=== PATIENT | male | born 1945 | race American Indian/Alaskan Native ===

== ENCOUNTER 2017-03-28 15:55 | Emergency (ER) | payer MEDICARE ==
[2017-03-28 20:22] VITALS: BP 170/68
--- NOTE | 2017-03-28 20:47 | Emergency Department Report ---
ED General Adult HPI - General Chief complaint: Extremity Injury, Lower Stated complaint: LEFT FOOT SWOLLEN Time Seen by Provider: 03/28/17 20:39 Source: patient, RN notes reviewed Mode of arrival: Wheelchair Limitations: No Limitations - History of Present Illness Initial comments: This is a 71-year-old male. He is previously unknown to me. His primary care doctor is Dr. Dylan Jordan. He reports a past medical history of hypertension and diabetes. Possible gout. The patient presents to the ER with left lower extremity swelling. It was initially painful, and this resolved. There is no chest pain. There is no shortness of breath. There is no hemoptysis or hematemesis. There is no bright red blood per rectum. No recent trips greater than 4 hours. No recent hospitalizations. The patient reports that the swelling has been constant, decreases when he sits down, increases when he stands up. -: Gradual, days(s) Location: left, lower extremity Consistency: intermittent Improves with: other (per hpi) Worsens with: other (per hpi) Associated Symptoms: denies: confusion, chest pain, cough, diaphoresis, headaches, loss of appetite, malaise, nausea/vomiting, shortness of breath, syncope, weakness - Related Data Home Medications Medication Instructions Recorded Confirmed Last Taken Aspirin [Adult Low Dose Aspirin EC] 81 mg PO DAILY 03/28/17 03/28/17 03/28/17 amLODIPine [Norvasc] 10 mg PO DAILY 03/28/17 03/28/17 03/28/17 metFORMIN [Glucophage] 500 mg PO BID 03/28/17 03/28/17 03/27/17 Previous Rx's Medication Instructions Recorded Last Taken Type Furosemide [Lasix] 20 mg PO QDAY #7 tablet 03/28/17 Unknown Rx Allergies Allergy/AdvReac Type Severity Reaction Status Date / Time No Known Allergies Allergy Unverified 03/28/17 16:26 ED Review of Systems ROS: Stated complaint: LEFT FOOT SWOLLEN Other details as noted in HPI Constitutional: denies: fever Eyes: denies: eye discharge ENT: denies: epistaxis Respiratory: denies: cough Cardiovascular: edema. denies: chest pain Gastrointestinal: denies: abdominal pain Genitourinary: as per HPI. denies: dysuria Musculoskeletal: joint swelling, arthralgia Skin: denies: lesions Neurological: denies: weakness ED Past Medical Hx - Past Medical History Hx Hypertension: Yes Hx Diabetes: Yes - Surgical History Hx Pacemaker: Yes - Social History Smoking Status: Never Smoker Substance Use Type: Alcohol - Medications Home Medications: Home Medications Medication Instructions Recorded Confirmed Last Taken Type Aspirin [Adult Low Dose Aspirin EC] 81 mg PO DAILY 03/28/17 03/28/17 03/28/17 History Furosemide [Lasix] 20 mg PO QDAY #7 tablet 03/28/17 Unknown Rx amLODIPine [Norvasc] 10 mg PO DAILY 03/28/17 03/28/17 03/28/17 History metFORMIN [Glucophage] 500 mg PO BID 03/28/17 03/28/17 03/27/17 History ED Physical Exam - General Limitations: No Limitations General appearance: alert, in no apparent distress - Head Head exam: Present: atraumatic, normocephalic - Eye Eye exam: Present: normal appearance, EOMI. Absent: nystagmus - ENT ENT exam: Present: normal exam, normal orophraynx, mucous membranes moist, normal external ear exam - Neck Neck exam: Present: normal inspection, full ROM. Absent: tenderness, meningismus - Respiratory Respiratory exam: Present: normal lung sounds bilaterally. Absent: respiratory distress, wheezes, rales, rhonchi, stridor, chest wall tenderness - Cardiovascular Cardiovascular Exam: Present: regular rate, normal rhythm, normal heart sounds. Absent: bradycardia, tachycardia, irregular rhythm, systolic murmur, diastolic murmur, rubs, gallop - GI/Abdominal GI/Abdominal exam: Present: soft, normal bowel sounds. Absent: distended, tenderness, guarding, rebound, rigid, pulsatile mass - Rectal Rectal exam: Present: deferred - Extremities Exam Extremities exam: Present: normal inspection, full ROM, normal capillary refill , pedal edema, other (there are 2+ pulses noted in the bilateral lower and upper extremities. There is no palpable cord. There is no crepitus. There is no redness. The compartments are soft. Foot is nontender. Ankles are nontender. The toes are nontender). Absent: calf tenderness - Back Exam Back exam: Present: normal inspection, full ROM. Absent: tenderness, CVA tenderness (R), CVA tenderness (L), muscle spasm, paraspinal tenderness, vertebral tenderness - Neurological Exam Neurological exam: Present: alert, oriented X3, other (Extraocular movements intact. Tongue midline. No facial droop. Facial sensation intact to light touch in the V1, V2, V3 distribution bilaterally. 5 and 5 strength in 4 extremities.. Sensation is intact to light touch in 4 extremities.). Absent: motor sensory deficit - Psychiatric Psychiatric exam: Present: normal affect, normal mood - Skin Skin exam: Present: warm, dry, intact, normal color. Absent: rash ED Course Vital Signs 03/28/17 03/28/17 16:27 20:21 Temperature 98.4 F Pulse Rate 107 H 76 Respiratory 18 16 Rate Blood Pressure 183/93 Blood Pressure 170/68 [Left] O2 Sat by Pulse 96 100 Oximetry - Reevaluation(s) Reevaluation #1: 03/28/17 22:09 x-ray of the foot demonstrates no fracture or dislocation. Soft tissue swelling is noted. X-ray the chest suggest possible mild pulmonary vascular congestion. The patient does not have crackles or rales, and he is not hypoxic. There may be a component of dependent edema. Patient will be started empirically on Lasix, and he is instructed to follow up with his outpatient primary care doctor. ED Medical Decision Making - Lab Data Result diagrams: 03/28/17 21:15 Vital Signs 03/28/17 03/28/17 16:27 20:21 Temperature 98.4 F Pulse Rate 107 H 76 Respiratory 18 16 Rate Blood Pressure 183/93 Blood Pressure 170/68 [Left] O2 Sat by Pulse 96 100 Oximetry - Radiology Data Radiology results: report reviewed, image reviewed interpreted by me: X-ray of the foot demonstrates no fracture or dislocation. DJD is noted. X-ray the chest demonstrates left-sided pacer device, mild pulmonary vascular congestion. No acute CHF or other findings LIVE [facility] JUANA URIOSTEGUI Male : 1945 [facility]# [id number] 03/28/17 18:41 - Radiology Dept. [facility]: [id number] : 1945 Patient Age: 71 VASCULAR LAB PRELIMINARY REPORT LLE VENOUS DOPPLER COMPLETED NO EVIDENCE OF DVT/SVT NOTED IN VESSELS/SEGMENTS VISUALIZED Initialized on 03/28/17 18:41 - END OF NOTE - Medical Decision Making Differential diagnosis: Venous insufficiency, DVT, renal insufficiency, hepatic insufficiency DJD, arthritis Assessment and plan: 71-year-old male with what is now painless swelling of the left lower extremity. The left lower extremity DVT study is negative. He has no chest pain or shortness of breath. He has no pulmonary embolus or DVT risk factors. He is low risk by well's criteria. Patient most likely having venous insufficiency. X-ray of the chest ordered to assess for possible CHF, but clinically not hypoxic without rales or rhonchi, therefore doubt CHF. We will check basic laboratory studies to exclude renal and liver insufficiency., Critical care attestation.: If time is entered above; I have spent that time in minutes in the direct care of this critically ill patient, excluding procedure time. ED Disposition Clinical Impression: Lower extremity edema Disposition: TO HOME OR SELFCARE Is pt being admited?: No Does the pt Need Aspirin: No Condition: Stable Instructions: Leg Edema (ED) Additional Instructions: Take the medication as directed. Follow up with a primary care doctor within the next week. Purchase [id number] compression stockings as. Weightbearing as tolerated. Take Tylenol every 4 hours, or ibuprofen every 6 hours as needed for pain. Return to the ER right away with new pain, worsened pain, migration of pain, fevers, chills, chest pain, shortness of breath, confusion, inability to tolerate liquid feeds. I recommend that your primary care doctor repeat your left lower extremity ultrasound within the next 7-10 days. Prescriptions: Furosemide [Lasix] 20 mg PO QDAY #7 tablet Referrals: YANNI BAUMANN MD [Primary Care Provider] - 3-5 Days
[2017-03-28 21:46] LABS: Alanine Aminotransferase 18 units/L (7-56); Albumin 4.2 g/dL (3.9-5); Albumin/Globulin Ratio 1.1 %; Alkaline Phosphatase 60 units/L (35-129); Anion Gap 21 mmol/L; Bilirubin,Direct 0.3 mg/dL (0-0.2); Blood Urea Nitrogen 18 mg/dL (9-20); Calcium 9.2 mg/dL (8.4-10.2); Carbon Dioxide 28 mmol/L (22-30); Chloride 92.7 mmol/L (98-107); Glucose 174 mg/dL (75-100); Potassium 3.7 mmol/L (3.6-5.0); Sodium 138 mmol/L (137-145); Total Protein 8.1 g/dL (6.3-8.2)
--- NOTE | 2017-03-29 07:49 | XRay Report ---
Portable chest: SOB. The heart is slightly enlarged. A bipolar pacemaker is present. Minimal redistribution of flow to the upper lobes is noted. The lungs are clear. No prior study for comparison. Impression: Findings suggesting minimal cardiac decompensation. Left foot: Swelling There is moderate swelling of the soft tissues predominantly over the dorsum of the foot. Mild degenerative spurring is noted along the dorsal surfaces of the anterior tail as and tarsal bones. There is calcification at the attachment of the Achilles tendon and a small plantar spur. The bones are well-mineralized. The joints are preserved. No fractures and no displacement is noted. Impression: Nonspecific swelling and degenerative spurring.
--- NOTE | 2017-03-29 11:17 | Vascular Lab Report ---
Left Lower Extremity Venous Duplex Study: Reason for Exam: Swelling of the left lower extremity. Comments on the Right: A limited duplex study was done of the proximal veins of the right lower extremity. All veins visualized are freely compressible without evidence of internal echogenicity. Flow is spontaneous and phasic throughout. No evidence of acute or chronic thrombus is seen in any of the vessels visualized. Comments on the Left: All veins visualized are freely compressible without evidence of internal echogenicity. Flow is spontaneous and phasic throughout. No evidence of acute or chronic thrombus is seen in any of the vessels visualized. Impression: No evidence of acute or chronic deep venous thrombosis in the left lower extremity.
== END 2017-03-28 22:29 | disposition home or self-care (01) ==
LOC: ED 15:55
DX: R60.0 Localized edema (principal); I10 Essential (primary) hypertension; E11.9 Type 2 diabetes mellitus without complications; Z95.0 Presence of cardiac pacemaker; Z79.82 Long term (current) use of aspirin
CPT/HCPCS: 36415; 71010; 80048; 80074

== ENCOUNTER 2019-08-21 13:33 | Inpatient (IN) | payer MEDICARE ==
[2019-08-21 17:04] LABS: Basophils % (Auto) 0.3 % (0.0-1.8); Hematocrit 29.7 % (35.5-45.6); Hemoglobin 9.4 gm/dl (11.8-15.2); Lymphocytes # (Auto) 0.3 K/mm3 (1.2-5.4); Lymphocytes % (Auto) 4.2 % (13.4-35.0); Mean Corpuscular HGB Conc 32 % (32-34); Mean Corpuscular Volume 99 fl (84-94); Monocytes # (Auto) 0.5 K/mm3 (0.0-0.8); Monocytes % (Auto) 7.8 % (0.0-7.3)
[2019-08-21 17:14] LABS: Albumin 3.1 g/dL (3.9-5); Calcium 7.6 mg/dL (8.4-10.2)
[2019-08-21 17:16] LABS: Red Cell Distribution Width 22.8 % (13.2-15.2)
[2019-08-21 18:08] LABS: Creatine Kinase MB 10.2 ng/mL (0.0-4.0)
[2019-08-21] MEDS ORDERED: ASPIRIN 325 MG TAB PO ONE (18:09)
--- NOTE | 2019-08-21 18:11 | Emergency Department Report ---
- General Chief complaint: Weakness Stated complaint: WEANKESS Time Seen by Provider: 08/21/19 14:58 Source: EMS Mode of arrival: Stretcher Limitations: Physical Limitation - History of Present Illness Initial comments: 74-year-old male with past medical history stage IV colon cancer, diabetes, hypertension, pacemaker placement, and colostomy presents to the hospital complains of generalized weakness. His daughter called 911 because she was weak and not eat breakfast. He fell off the couch earlier and she had to call EMS to lift him up off the floor. Patient is oriented to self only. States year is 1919 or 2012. Cannot identify where he is or why he is here. He denies any pain currently. MD Complaint: numbness Severity scale (0 -10): 0 - Related Data Home Medications Medication Instructions Recorded Confirmed Last Taken Aspirin [Adult Low Dose Aspirin EC] 81 mg PO DAILY 03/28/17 03/28/17 03/28/17 amLODIPine [Norvasc] 10 mg PO DAILY 03/28/17 03/28/17 03/28/17 metFORMIN [Glucophage] 500 mg PO BID 03/28/17 03/28/17 03/27/17 Previous Rx's Medication Instructions Recorded Last Taken Type Furosemide [Lasix] 20 mg PO QDAY #7 tablet 03/28/17 Unknown Rx Allergies Allergy/AdvReac Type Severity Reaction Status Date / Time No Known Allergies Allergy Unverified 03/28/17 16:26 ED Review of Systems ROS: Stated complaint: WEANKESS Other details as noted in HPI Comment: All other systems reviewed and negative ED Past Medical Hx - Past Medical History Previous Medical History?: Yes Hx Hypertension: Yes Hx Diabetes: Yes Additional medical history: Stage 4 colon cancer per EMS report. - Surgical History Past Surgical History?: Yes Hx Pacemaker: Yes Additional Surgical History: colostomy - Social History Smoking Status: Former Smoker Substance Use Type: None - Medications Home Medications: Home Medications Medication Instructions Recorded Confirmed Last Taken Type Aspirin [Adult Low Dose Aspirin EC] 81 mg PO DAILY 03/28/17 03/28/17 03/28/17 History Furosemide [Lasix] 20 mg PO QDAY #7 tablet 03/28/17 Unknown Rx amLODIPine [Norvasc] 10 mg PO DAILY 03/28/17 03/28/17 03/28/17 History metFORMIN [Glucophage] 500 mg PO BID 0703/28/17 03/27/17 History ED Physical Exam - General Limitations: Physical Limitation - Other Other exam information: General: No acute distress Head: Atraumatic Eyes: normal appearance ENT: His membranes Neck: Normal appearance, no midline tenderness Chest: Clear to auscultation bilaterally CV: Regular rate and rhythm Abdomen: Soft, normal bowel sounds, nontender, nondistended, no rebound or guarding. Colostomy bag. Midline lower vertical surgical scar Back: Normal inspection Extremity: Normal inspection infection, full range of motion Neuro: Alert O x 1, no facial asymmetry, speech clear, 5/5 upper extremity strength. 4/5 bilateral lower extremity strength equal bilaterally. Sensation grossly intact. Psych: Appropriate behavior Skin: No rash ED Course Vital Signs 08/21/19 08/21/19 08/21/19 15:20 17:20 19:14 Temperature 97.8 F Pulse Rate 70 70 70 Respiratory 14 13 20 Rate Blood Pressure 156/93 Blood Pressure 143/85 149/97 [Left] O2 Sat by Pulse 99 97 98 Oximetry ED Medical Decision Making - Lab Data Result diagrams: 08/21/19 16:39 08/21/19 16:39 Lab Results 08/21/19 08/21/19 08/21/19 Range/Units 16:35 16:39 16:39 WBC 7.0 (4.5-11.0) K/mm3 RBC 3.00 L (3.65-5.03) M/mm3 Hgb 9.4 L (11.8-15.2) gm/dl Hct 29.7 L (35.5-45.6) % MCV 99 H (84-94) fl MCH 31 (28-32) pg MCHC 32 (32-34) % RDW 22.8 H (13.2-15.2) % Plt Count 79 L (140-440) K/mm3 Lymph % (Auto) 4.2 L (13.4-35.0) % [place] % (Auto) 7.8 H (0.0-7.3) % Eos % (Auto) 0.0 (0.0-4.3) % Baso % (Auto) 0.3 (0.0-1.8) % Lymph # 0.3 L (1.2-5.4) K/mm3 [place] # 0.5 (0.0-0.8) K/mm3 Eos # 0.0 (0.0-0.4) K/mm3 Baso # 0.0 (0.0-0.1) K/mm3 Seg Neutrophils % 87.7 H (40.0-70.0) % Seg Neutrophils # 6.1 (1.8-7.7) K/mm3 Sodium 152 H (137-145) mmol/L Potassium 3.3 L (3.6-5.0) mmol/L Chloride 112.9 H (98-107) mmol/L Carbon Dioxide 17 L (22-30) mmol/L Anion Gap 25 mmol/L BUN 64 H (9-20) mg/dL Creatinine 3.0 H (0.8-1.5) mg/dL Estimated GFR 25 ml/min BUN/Creatinine Ratio 21 % Glucose 110 H (75-100) mg/dL POC Glucose 99 (70-105) Calcium 7.6 L (8.4-10.2) mg/dL Magnesium (1.7-2.3) mg/dL Total Bilirubin 6.00 H (0.1-1.2) mg/dL AST 235 H (5-40) units/L ALT 388 H (7-56) units/L Alkaline Phosphatase 366 H (35-129) units/L Total Creatine Kinase (55-170) units/L CK-MB (CK-2) (0.0-4.0) ng/mL CK-MB (CK-2) Rel Index (0-4) Troponin T (0.00-0.029) ng/mL Total Protein 6.6 (6.3-8.2) g/dL Albumin 3.1 L (3.9-5) g/dL Albumin/Globulin Ratio 0.9 % Triglycerides (2-149) mg/dL Cholesterol (50-199) mg/dL LDL Cholesterol Direct (50-130) mg/dL HDL Cholesterol (40-59) mg/dL Cholesterol/HDL Ratio % TSH (0.270-4.200) mlU/mL Free T4 (0.76-1.46) ng/dL 08/21/19 08/21/19 08/21/19 Range/Units 16:44 16:44 16:44 WBC (4.5-11.0) K/mm3 RBC (3.65-5.03) M/mm3 Hgb (11.8-15.2) gm/dl Hct (35.5-45.6) % MCV (84-94) fl MCH (28-32) pg MCHC (32-34) % RDW (13.2-15.2) % Plt Count (140-440) K/mm3 Lymph % (Auto) (13.4-35.0) % [place] % (Auto) (0.0-7.3) % Eos % (Auto) (0.0-4.3) % Baso % (Auto) (0.0-1.8) % Lymph # (1.2-5.4) K/mm3 [place] # (0.0-0.8) K/mm3 Eos # (0.0-0.4) K/mm3 Baso # (0.0-0.1) K/mm3 Seg Neutrophils % (40.0-70.0) % Seg Neutrophils # (1.8-7.7) K/mm3 Sodium (137-145) mmol/L Potassium (3.6-5.0) mmol/L Chloride (98-107) mmol/L Carbon Dioxide (22-30) mmol/L Anion Gap mmol/L BUN (9-20) mg/dL Creatinine (0.8-1.5) mg/dL Estimated GFR ml/min BUN/Creatinine Ratio % Glucose (75-100) mg/dL POC Glucose (70-105) Calcium (8.4-10.2) mg/dL Magnesium 1.80 (1.7-2.3) mg/dL Total Bilirubin (0.1-1.2) mg/dL AST (5-40) units/L ALT (7-56) units/L Alkaline Phosphatase (35-129) units/L Total Creatine Kinase 1636 H (55-170) units/L CK-MB (CK-2) 10.2 H (0.0-4.0) ng/mL CK-MB (CK-2) Rel Index 0.6 (0-4) Troponin T 0.188 H* (0.00-0.029) ng/mL Total Protein (6.3-8.2) g/dL Albumin (3.9-5) g/dL Albumin/Globulin Ratio % Triglycerides 184 H (2-149) mg/dL Cholesterol 123 (50-199) mg/dL LDL Cholesterol Direct 52 (50-130) mg/dL HDL Cholesterol 21 L (40-59) mg/dL Cholesterol/HDL Ratio 5.85 % TSH 3.190 (0.270-4.200) mlU/mL Free T4 0.93 (0.76-1.46) ng/dL - EKG Data -: EKG Interpreted by Me (v paced rate 70) - Medical Decision Making pt with colon cancer poor po intake no pain labs show renal insuf (last cr on record normal 2016 no more recent value for comparison) 1/2 NS ordered asa provided for elevated trop but could be due renal insuf, repeat pending plan to admit to hospitalist service ammonia added to blood work since labs suggest end stage liver disease. (elevated lfts and thrombocytopenia) - Differential Diagnosis anemia, mi, dehydration, cancer Critical Care Time: No Critical care attestation.: If time is entered above; I have spent that time in minutes in the direct care of this critically ill patient, excluding procedure time. ED Disposition Clinical Impression: Generalized weakness, Dehydration, Renal insufficiency, Hypokalemia, Elevated LFTs, Colon cancer, Elevated troponin, Thrombocytopenia, Elevated CK Disposition: OP ADMIT IP TO THIS HOSP Is pt being admited?: Yes Condition: Stable Time of Disposition: 18:34 (Dr Castanon/hosp)
[2019-08-21 18:15] LABS: Free T4 (Free Thyroxine) 0.93 ng/dL (0.76-1.46)
[2019-08-21 18:23] LABS: Chol/HDL Ratio 5.85 %
[2019-08-21 18:28] LABS: Platelet Count 79 K/mm3 (140-440)
--- NOTE | 2019-08-21 18:36 | History and Physical Report ---
History of Present Illness Chief complaint: He is weak and cant do anything for himself History of present illness: 74 YO Male with DM, HTN, Cardiomyopathy S/P Pacemaker Placement, Encephalopathy, Stage 4 Colon Cancer with metastatic disease to Liver, Brain, and Bone, Debility presents to ED for evaluation. Pt is nonverbal and unable to provide history. Pt history provided by his . As per , the patient has experienced confusion, Weakness, and decreased oral intake over the past 1 month with progressively worsening symptoms over the same time frame. Pt has experienced multiple falls over the past 2 weeks which required notification of EMS to lift patient off the floor. Pt has not eaten over the past 1-2 days. Pt is currently bedbound, nonambulatory, and unable to sit up independently in bed. Pt requires 6/6 assistance with activities of daily living. Pt is also confused, and refused oral intake. Pt is unable to make his needs known. EMS notified, and upon arrival the patient was found to be in distress. Pt transported to [facility]. Pt seen and evaluated in ED and found to have AKD, Acidosis, Rhabdomyolysis, and Debility. Pt admitted to medical floor and treated with supportive care and IVF resuscitation therapy. Advanced care planning conducted in ED. Pt acknowledges understanding and agreement with care plan. Past History Past Surgical History: bowel surgery, Other (Pacemaker Placement.) Social history: , lives with family. denies: smoking, alcohol abuse, prescription drug abuse Family history: hypertension Medications and Allergies Allergies Allergy/AdvReac Type Severity Reaction Status Date / Time No Known Allergies Allergy Unverified 03/28/17 16:26 Home Medications Medication Instructions Recorded Confirmed Last Taken Type Aspirin [Adult Low Dose Aspirin EC] 81 mg PO DAILY 03/28/17 03/28/17 03/28/17 History Furosemide [Lasix] 20 mg PO QDAY #7 tablet 03/28/17 Unknown Rx amLODIPine [Norvasc] 10 mg PO DAILY 03/28/17 03/28/17 03/28/17 History metFORMIN [Glucophage] 500 mg PO BID 03/28/17 03/28/17 03/27/17 History Active Meds: Active Medications Sodium Chloride (Nacl 0.45% 1000 Ml) 1,000 mls @ 200 mls/hr IV DIRECT FREDA Review of Systems ROS unobtainable: due to mental status Exam - Constitutional Vitals: Temp Pulse Resp BP Pulse Ox 97.8 F 70 13 143/85 97 08/21/19 15:20 08/21/19 17:20 08/21/19 17:20 08/21/19 17:20 08/21/19 17:20 General appearance: Present: mild distress - EENT Eyes: Present: miosis ENT: hearing decreased - Neck Neck: Present: supple, normal ROM - Respiratory Respiratory: bilateral: diminished - Cardiovascular Heart Sounds: Present: S1 & S2. Absent: rub, click - Extremities Extremities: pulses symmetrical, No edema Extremity abnormal: edema Peripheral Pulses: within normal limits - Abdominal General gastrointestinal: Present: soft, non-tender, non-distended, normal bowel sounds Male genitourinary: Present: normal - Integumentary Integumentary: Present: clear, dry, clammy, decreased turgor - Musculoskeletal Musculoskeletal: generalized weakness - Psychiatric Psychiatric: no appropriate mood/affect, no intact judgment & insight, no memory intact, no cooperative, agitated - Neurologic Neurologic: CNII-XII intact, moves all extremities, no gait normal Results - Labs CBC & Chem 7: 08/21/19 16:39 08/21/19 16:39 Labs: Abnormal lab results 08/21/19 08/21/19 08/21/19 Range/Units 16:39 16:39 16:44 RBC 3.00 L (3.65-5.03) M/mm3 Hgb 9.4 L (11.8-15.2) gm/dl Hct 29.7 L (35.5-45.6) % MCV 99 H (84-94) fl RDW 22.8 H (13.2-15.2) % Plt Count 79 L (140-440) K/mm3 Lymph % (Auto) 4.2 L (13.4-35.0) % [place] % (Auto) 7.8 H (0.0-7.3) % Lymph # 0.3 L (1.2-5.4) K/mm3 Seg Neutrophils % 87.7 H (40.0-70.0) % Sodium 152 H (137-145) mmol/L Potassium 3.3 L (3.6-5.0) mmol/L Chloride 112.9 H (98-107) mmol/L Carbon Dioxide 17 L (22-30) mmol/L BUN 64 H (9-20) mg/dL Creatinine 3.0 H (0.8-1.5) mg/dL Glucose 110 H (75-100) mg/dL Calcium 7.6 L (8.4-10.2) mg/dL Total Bilirubin 6.00 H (0.1-1.2) mg/dL AST 235 H (5-40) units/L ALT 388 H (7-56) units/L Alkaline Phosphatase 366 H (35-129) units/L Total Creatine Kinase (55-170) units/L CK-MB (CK-2) (0.0-4.0) ng/mL Troponin T 0.188 H* (0.00-0.029) ng/mL Albumin 3.1 L (3.9-5) g/dL Triglycerides 184 H (2-149) mg/dL HDL Cholesterol 21 L (40-59) mg/dL 08/21/19 Range/Units 16:44 RBC (3.65-5.03) M/mm3 Hgb (11.8-15.2) gm/dl Hct (35.5-45.6) % MCV (84-94) fl RDW (13.2-15.2) % Plt Count (140-440) K/mm3 Lymph % (Auto) (13.4-35.0) % [place] % (Auto) (0.0-7.3) % Lymph # (1.2-5.4) K/mm3 Seg Neutrophils % (40.0-70.0) % Sodium (137-145) mmol/L Potassium (3.6-5.0) mmol/L Chloride (98-107) mmol/L Carbon Dioxide (22-30) mmol/L BUN (9-20) mg/dL Creatinine (0.8-1.5) mg/dL Glucose (75-100) mg/dL Calcium (8.4-10.2) mg/dL Total Bilirubin (0.1-1.2) mg/dL AST (5-40) units/L ALT (7-56) units/L Alkaline Phosphatase (35-129) units/L Total Creatine Kinase 1636 H (55-170) units/L CK-MB (CK-2) 10.2 H (0.0-4.0) ng/mL Troponin T (0.00-0.029) ng/mL Albumin (3.9-5) g/dL Triglycerides (2-149) mg/dL HDL Cholesterol (40-59) mg/dL Assessment and Plan - Patient Problems (1) GERI (acute kidney injury) Current Visit: Yes Status: Acute Plan to address problem: IVF resuscitation therapy, urine electrolytes, renal ultrasound, monitor uop q shift, avoid nephrotoxic agents. (2) Acidosis Current Visit: Yes Status: Acute Plan to address problem: IVF resuscitation therapy, IV bicarbonate therapy, repeat bmp in am. (3) Rhabdomyolysis Current Visit: Yes Status: Acute Qualifiers: Encounter type: initial encounter Plan to address problem: IVF resuscitation therapy, Iv bicarbonate therapy, repeat bmp, monitor uop q shift, (4) Colon cancer Current Visit: Yes Status: Acute Qualifiers: Colon location: unspecified part of colon Qualified Code(s): C18.9 - Malignant neoplasm of colon, unspecified Plan to address problem: Supportive care, pain control, outpatient F/U (5) Metabolic encephalopathy Current Visit: Yes Status: Acute Plan to address problem: CT head, neuro check, thyroid panel, aspiration precautions, seizure precautions, fall precautions. (6) Advance care planning Current Visit: Yes Status: Acute Plan to address problem: Pt is full code. Pt prognosis discussed. Risks and benefits of current care plan discussed. Pt acknowledges understanding and agreement with care plan. +30min. (7) DVT prophylaxis Current Visit: Yes Status: Acute Plan to address problem: SCD to BLE while in bed, supportive care, prophylactic heparin
[2019-08-21] MEDS ORDERED: SODIUM CHLORIDE 0.45% 1000 ML 1,000 ML IV SCH ×2 (19:00→20:00)
[2019-08-21] MEDS ORDERED: ALBUTEROL 2.5 MG/3 ML NEBU IH PRN (19:02)
[2019-08-21] MEDS ORDERED: ONDANSETRON 4 MG/2 ML INJ IV PRN (19:02)
[2019-08-21] MEDS ORDERED: ACETAMINOPHEN 325 MG TAB PO PRN (19:02)
[2019-08-21] MEDS ORDERED: MORPHINE 2 MG/1 ML INJ IV PRN (19:02)
--- NOTE | 2019-08-21 23:24 | Cat Scan Report ---
Head CT without intravenous contrast INDICATION: Altered mental status FINDINGS: Moderate atrophic changes are seen with enlarged ventricles and prominent sulci. Periventricular whit e matter low-attenuation is likely due to microangiopathic ischemic change. No hemorrhage or extra-ax ial fluid collection. No edema or mass effect. No focal infarct is seen. Portions of the sinuses visu alized are clear. No skull fracture seen. No acute abnormality. IMPRESSION: Negative head CT. All CT scans at this location are performed using CT dose reduction for ALARA by means of automated e xposure control Signer Name: Francisco Dahl MD Signed: 08/21/2019 11:19 PM Workstation Name: [id number]
[2019-08-21] MEDS: HEPARIN 5,000 UNIT/1 ML VIAL SUB-Q SCH (23:30)
[2019-08-22] MEDS: ALPRAZolam 0.25 MG TAB PO PRN (03:40)
[2019-08-22 07:33] LABS: Hematocrit 30.7 % (35.5-45.6); Hemoglobin 9.5 gm/dl (11.8-15.2); Mean Corpuscular HGB Conc 31 % (32-34); Mean Corpuscular Volume 102 fl (84-94)
[2019-08-22 07:34] LABS: Platelet Count 68 K/mm3 (140-440); Red Cell Distribution Width 22.6 % (13.2-15.2)
[2019-08-22 07:47] LABS: Albumin 3.1 g/dL (3.9-5); Calcium 7.4 mg/dL (8.4-10.2)
[2019-08-22] MEDS ORDERED: FUROSEMIDE 20 MG TAB PO SCH (10:00)
[2019-08-22] MEDS: ASPIRIN EC 81 MG TAB PO SCH (10:05)
[2019-08-22] MEDS: amLODIPine 10 MG TAB PO SCH (10:06)
[2019-08-22] MEDS: HEPARIN 5,000 UNIT/1 ML VIAL SUB-Q SCH ×2 (10:06→22:32)
[2019-08-22] MEDS: D5W/0.45% NACL 1,000 ML IV SCH ×2 (10:07→22:59)
[2019-08-22 10:28] LABS: Basophils % (Manual) 0 % (0.0-1.8); Eosinophils % (Manual) 0 % (0.0-4.3); Total Cells Counted 100
[2019-08-22 10:30] LABS: Schistocytes Rare; Spherocytes Few; Tear Drop Cells 1+
[2019-08-22 10:31] LABS: Platelet Estimate Consistent w Auto
--- NOTE | 2019-08-22 11:12 | Progress Note ---
Assessment and Plan / GERI (acute kidney injury) due to vasomotor nephropathy on possible CKD cont IVF resuscitation therapy, monitor uop q shift, avoid nephrotoxic agents. /Metabolic Acidosis - due to renal failure and dehydration cont IVF resuscitation therapy, repeat bmp in am. / Rhabdomyolysis cont IVF resuscitation therapy, monitor uop q shift, monitor CPK / Colon cancer stage 4 - s/p colostomy Supportive care, pain control, outpatient F/U family wants hospice, CM consulted / Metabolic encephalopathy CT w/o any new findings, cont to provide supportive care /Moderate PCM - nutrition supplements /Hypernatremia - due to dehydration - cont iv fluid /Anemia of CD - cont to monitor CBC /Thrombocytopenia, likely from underlying malignancy, cont to monitor / Advance care planning Pt is now DNR. Pt prognosis discussed. Risks and benefits of current care plan discussed. Pt acknowledges understanding and agreement with care plan. requested hospice / DVT prophylaxis SCD to BLE while in bed, supportive care, no prophylactic heparin for low platelet Subjective Date of service: 08/22/19 Interval history: Patient seen and examined Discussed with - wants to place for DNR and home hospice Patient has no new symptom today, monitoring electrolytes Objective - Constitutional Vitals: Vital Signs - 12hr 08/22/19 08/22/19 08/22/19 01:09 02:20 02:23 Temperature 97.2 F L Pulse Rate 73 Respiratory 20 Rate Blood Pressure 149/92 O2 Sat by Pulse 100 95 Oximetry 08/22/19 08/22/19 07:21 10:06 Temperature Pulse Rate 77 77 Respiratory 18 Rate Blood Pressure 150/96 150/96 O2 Sat by Pulse 93 Oximetry General appearance: Present: mild distress, other (ill-looking) - EENT Eyes: PERRL, EOM intact ENT: hearing intact, clear oral mucosa Ears: bilateral: normal - Neck Neck: supple, normal ROM - Respiratory Respiratory effort: normal Respiratory: bilateral: CTA - Cardiovascular Rhythm: regular Heart Sounds: Present: S1 & S2. Absent: gallop, rub Extremities: pulses intact, No edema, normal color, Full ROM - Gastrointestinal General gastrointestinal: Present: soft, non-tender, non-distended, normal bowel sounds - Integumentary Integumentary: clear, warm, dry - Musculoskeletal Musculoskeletal: 1, strength equal bilaterally - Neurologic Neurologic: moves all extremities - Psychiatric Psychiatric: cooperative, other (does not speak) - Labs CBC & Chem 7: 08/22/19 06:44 08/23/19 03:54 Labs: Abnormal lab results 08/21/19 08/21/19 08/21/19 Range/Units 16:39 16:39 16:44 RBC 3.00 L (3.65-5.03) M/mm3 Hgb 9.4 L (11.8-15.2) gm/dl Hct 29.7 L (35.5-45.6) % MCV 99 H (84-94) fl MCHC (32-34) % RDW 22.8 H (13.2-15.2) % Plt Count 79 L (140-440) K/mm3 Lymph % (Auto) 4.2 L (13.4-35.0) % Laurens % (Auto) 7.8 H (0.0-7.3) % Lymph # 0.3 L (1.2-5.4) K/mm3 Seg Neutrophils % 87.7 H (40.0-70.0) % Seg Neuts % (Manual) (40.0-70.0) % Lymphocytes % (Manual) (13.4-35.0) % Nucleated RBC % (0.0-0.9) % Lymphocytes # (Manual) (1.2-5.4) K/mm3 Sodium 152 H (137-145) mmol/L Potassium 3.3 L (3.6-5.0) mmol/L Chloride 112.9 H (98-107) mmol/L Carbon Dioxide 17 L (22-30) mmol/L BUN 64 H (9-20) mg/dL Creatinine 3.0 H (0.8-1.5) mg/dL Glucose 110 H (75-100) mg/dL POC Glucose (70-105) Calcium 7.6 L (8.4-10.2) mg/dL Total Bilirubin 6.00 H (0.1-1.2) mg/dL AST 235 H (5-40) units/L ALT 388 H (7-56) units/L Alkaline Phosphatase 366 H (35-129) units/L Total Creatine Kinase (55-170) units/L CK-MB (CK-2) (0.0-4.0) ng/mL Troponin T 0.188 H* (0.00-0.029) ng/mL Albumin 3.1 L (3.9-5) g/dL Triglycerides 184 H (2-149) mg/dL HDL Cholesterol 21 L (40-59) mg/dL 08/21/19 08/21/19 08/21/19 Range/Units 16:44 19:37 22:50 RBC (3.65-5.03) M/mm3 Hgb (11.8-15.2) gm/dl Hct (35.5-45.6) % MCV (84-94) fl MCHC (32-34) % RDW (13.2-15.2) % Plt Count (140-440) K/mm3 Lymph % (Auto) (13.4-35.0) % Laurens % (Auto) (0.0-7.3) % Lymph # (1.2-5.4) K/mm3 Seg Neutrophils % (40.0-70.0) % Seg Neuts % (Manual) (40.0-70.0) % Lymphocytes % (Manual) (13.4-35.0) % Nucleated RBC % (0.0-0.9) % Lymphocytes # (Manual) (1.2-5.4) K/mm3 Sodium (137-145) mmol/L Potassium (3.6-5.0) mmol/L Chloride (98-107) mmol/L Carbon Dioxide (22-30) mmol/L BUN (9-20) mg/dL Creatinine (0.8-1.5) mg/dL Glucose (75-100) mg/dL POC Glucose (70-105) Calcium (8.4-10.2) mg/dL Total Bilirubin (0.1-1.2) mg/dL AST (5-40) units/L ALT (7-56) units/L Alkaline Phosphatase (35-129) units/L Total Creatine Kinase 1636 H (55-170) units/L CK-MB (CK-2) 10.2 H (0.0-4.0) ng/mL Troponin T 0.204 H* 0.180 H* (0.00-0.029) ng/mL Albumin (3.9-5) g/dL Triglycerides (2-149) mg/dL HDL Cholesterol (40-59) mg/dL 08/22/19 08/22/19 08/22/19 Range/Units 06:44 06:44 07:28 RBC 3.00 L (3.65-5.03) M/mm3 Hgb 9.5 L (11.8-15.2) gm/dl Hct 30.7 L (35.5-45.6) % MCV 102 H (84-94) fl MCHC 31 L (32-34) % RDW 22.6 H (13.2-15.2) % Plt Count 68 L (140-440) K/mm3 Lymph % (Auto) (13.4-35.0) % Laurens % (Auto) (0.0-7.3) % Lymph # (1.2-5.4) K/mm3 Seg Neutrophils % (40.0-70.0) % Seg Neuts % (Manual) 90.0 H (40.0-70.0) % Lymphocytes % (Manual) 0 L (13.4-35.0) % Nucleated RBC % 2.0 H (0.0-0.9) % Lymphocytes # (Manual) 0.0 L (1.2-5.4) K/mm3 Sodium 152 H (137-145) mmol/L Potassium (3.6-5.0) mmol/L Chloride 110.1 H (98-107) mmol/L Carbon Dioxide 15 L (22-30) mmol/L BUN 72 H (9-20) mg/dL Creatinine 2.7 H (0.8-1.5) mg/dL Glucose 124 H (75-100) mg/dL POC Glucose 139 H (70-105) Calcium 7.4 L (8.4-10.2) mg/dL Total Bilirubin 6.20 H (0.1-1.2) mg/dL AST 238 H (5-40) units/L ALT 357 H (7-56) units/L Alkaline Phosphatase 339 H (35-129) units/L Total Creatine Kinase (55-170) units/L CK-MB (CK-2) (0.0-4.0) ng/mL Troponin T (0.00-0.029) ng/mL Albumin 3.1 L (3.9-5) g/dL Triglycerides (2-149) mg/dL HDL Cholesterol (40-59) mg/dL
[2019-08-22 17:06] LABS: Bacteria,Urine 2+ /HPF (Negative); Bilirubin,Urine NEG (Negative); Blood,Urine LG (Negative); Color,Urine Amber (Yellow); Mucus,Urine 1+ /HPF
[2019-08-23 04:53] LABS: Albumin 2.9 g/dL (3.9-5); Calcium 6.7 mg/dL (8.4-10.2)
[2019-08-23] MEDS ORDERED: POTASSIUM CHLORIDE ER 20 MEQ TAB PO ONE (10:04)
[2019-08-23] MEDS ORDERED: NACL IV SCH (10:04)
[2019-08-23] MEDS ORDERED: D5W IV SCH (10:04)
[2019-08-23] MEDS ORDERED: POTASSIUM CHLORIDE IV SCH (10:04)
[2019-08-23] MEDS: INSULIN LISPRO 100 UNIT/ML SUB-Q SCH ×4 (10:15→21:47)
[2019-08-23] MEDS: amLODIPine 10 MG TAB PO SCH (10:16)
[2019-08-23] MEDS: ASPIRIN EC 81 MG TAB PO SCH (10:16)
[2019-08-23] MEDS: ALPRAZolam 0.25 MG TAB PO PRN (10:17)
[2019-08-23] MEDS: HEPARIN 5,000 UNIT/1 ML VIAL SUB-Q SCH (10:17)
--- NOTE | 2019-08-23 13:05 | Progress Note ---
Assessment and Plan / GERI (acute kidney injury) due to vasomotor nephropathy on possible CKD cont IVF resuscitation therapy, monitor uop q shift, avoid nephrotoxic agents. Renal function remained stable /hypokalemia, replete as needed, monitor BMP /Metabolic Acidosis - due to renal failure and severe dehydration cont IVF resuscitation therapy, repeat bmp in am. / Rhabdomyolysis cont IVF resuscitation therapy, monitor uop q shift, monitor CPK / Colon cancer stage 4 - s/p colostomy Supportive care, pain control, outpatient F/U family wants hospice, CM consulted / Metabolic encephalopathy CT w/o any new findings, cont to provide supportive care /Moderate PCM - nutrition supplements /Hypernatremia - due to dehydration - cont iv fluid /Anemia of CD - cont to monitor CBC /Elevated LFT - due to hepatic metastasis, cont to monitor /Thrombocytopenia, likely from underlying malignancy, cont to monitor / Advance care planning Pt is now DNR. Pt prognosis discussed. Risks and benefits of current care plan discussed. Pt acknowledges understanding and agreement with care plan. requested hospice / DVT prophylaxis SCD to BLE while in bed, supportive care, no prophylactic heparin for low platelet Disposition: pending home hospice set up Subjective Date of service: 08/23/19 Interval history: Patient seen and examined Patient has no new symptom today, monitoring electrolytes Discharge pending on hospice set up Objective - Exam Narrative Exam: General appearance: Present: mild distress, other (ill-looking) - EENT Eyes: PERRL, EOM intact ENT: hearing intact, clear oral mucosa Ears: bilateral: normal - Neck Neck: supple, normal ROM - Respiratory Respiratory effort: normal Respiratory: bilateral: CTA - Cardiovascular Rhythm: regular Heart Sounds: Present: S1 & S2. Absent: gallop, rub Extremities: pulses intact, No edema, normal color, Full ROM - Gastrointestinal General gastrointestinal: Present: soft, non-tender, non-distended, normal bowel sounds - colostomy bag in place - Integumentary Integumentary: clear, warm, dry - Musculoskeletal Musculoskeletal: 1, strength equal bilaterally - Neurologic Neurologic: moves all extremities - Psychiatric Psychiatric: cooperative, other (does not speak) - Constitutional Vitals: Vital Signs - 12hr 08/23/19 08/23/19 08/23/19 02:04 07:21 12:51 Temperature 97.2 F L Pulse Rate 70 73 Respiratory 18 19 Rate Blood Pressure 146/88 146/84 O2 Sat by Pulse 95 95 95 Oximetry - Labs CBC & Chem 7: 08/24/19 04:01 08/24/19 04:01 Labs: Abnormal lab results 08/22/19 08/22/19 08/22/19 Range/Units 16:40 16:57 21:03 Sodium (137-145) mmol/L Potassium (3.6-5.0) mmol/L Chloride (98-107) mmol/L Carbon Dioxide (22-30) mmol/L BUN (9-20) mg/dL Creatinine (0.8-1.5) mg/dL Glucose (75-100) mg/dL POC Glucose 206 H 276 H (70-105) Calcium (8.4-10.2) mg/dL Total Bilirubin (0.1-1.2) mg/dL Direct Bilirubin (0-0.2) mg/dL AST (5-40) units/L ALT (7-56) units/L Alkaline Phosphatase (35-129) units/L Total Protein (6.3-8.2) g/dL Albumin (3.9-5) g/dL Urine WBC (Auto) 38.0 H (0.0-6.0) /HPF 08/23/19 08/23/19 08/23/19 Range/Units 03:54 07:30 11:47 Sodium 150 H (137-145) mmol/L Potassium 3.0 L D (3.6-5.0) mmol/L Chloride 112.6 H (98-107) mmol/L Carbon Dioxide 20 L (22-30) mmol/L BUN 68 H (9-20) mg/dL Creatinine 2.7 H (0.8-1.5) mg/dL Glucose 186 H (75-100) mg/dL POC Glucose 231 H 212 H (70-105) Calcium 6.7 L (8.4-10.2) mg/dL Total Bilirubin 5.10 H (0.1-1.2) mg/dL Direct Bilirubin 3.0 H (0-0.2) mg/dL AST 166 H (5-40) units/L ALT 291 H (7-56) units/L Alkaline Phosphatase 304 H (35-129) units/L Total Protein 5.7 L (6.3-8.2) g/dL Albumin 2.9 L (3.9-5) g/dL Urine WBC (Auto) (0.0-6.0) /HPF
[2019-08-23] MEDS: D5W/0.45% NACL/KCL 30 MEQ 30 MEQ/1,000 ML BAG IV SCH (14:26)
[2019-08-24] MEDS: D5W/0.45% NACL/KCL 30 MEQ 30 MEQ/1,000 ML BAG IV SCH (04:35)
[2019-08-24 04:57] LABS: Hematocrit 29.3 % (35.5-45.6); Hemoglobin 9.2 gm/dl (11.8-15.2); Mean Corpuscular HGB Conc 31 % (32-34); Mean Corpuscular Volume 100 fl (84-94); Red Blood Count 2.91 M/mm3 (3.65-5.03); Red Cell Distribution Width 23.2 % (13.2-15.2)
[2019-08-24 04:58] LABS: Platelet Count 71 K/mm3 (140-440)
[2019-08-24 05:06] LABS: Calcium 6.6 mg/dL (8.4-10.2)
[2019-08-24 05:47] LABS: Basophils % (Manual) 0 % (0.0-1.8); Eosinophils % (Manual) 0 % (0.0-4.3); Total Cells Counted 100
[2019-08-24 05:48] LABS: Anisocytosis 2+; Macrocytosis 1+; Poikilocytosis 1+; Target Cells 1+
[2019-08-24 05:49] LABS: Platelet Estimate Consistent w Auto
[2019-08-24] MEDS: INSULIN LISPRO 100 UNIT/ML SUB-Q SCH ×3 (07:36→18:35)
[2019-08-24] MEDS: amLODIPine 10 MG TAB PO SCH (09:32)
--- NOTE | 2019-08-24 13:06 | Discharge Summary ---
Providers - Providers Date of Admission: 08/21/19 19:02 Date of discharge: 08/24/19 Attending physician: TORSTEN YORK 08/22/19 05:16 Occupational Therapy Evaluate and Treat [CONS] Routine Comment: Reason For Exam: per geriatric assessment 08/22/19 05:45 Consult to Wound/ET Nurse [CONS] Routine Reason For Exam: wound eval 08/22/19 05:47 Physical Therapy Evaluation and Treat [CONS] Routine Comment: Reason For Exam: generalized weakness 08/22/19 16:20 Consult to Case Management [CONS] Routine Services Needed at Discharge: Other Additional Physician Instructions: home hospice 08/22/19 19:20 Speech Therapy Evaluation and Treat [CONS] Routine Reason For Exam: swallow eval Primary care physician: BRETT SUTTON Hospitalization Condition: Stable Pertinent studies: Head CT Hospital course: Discharge diagnosis: /Elevated troponin - likely NSTEMI type 2, pt w/o active chest pain in the setti ng of GERI, waiting for hospice setup. / GERI (acute kidney injury) due to vasomotor nephropathy on possible CKD cont IVF resuscitation therapy, monitor uop q shift, avoid nephrotoxic agents. Renal function remained stable /hypokalemia, replete as needed, monitor BMP /Metabolic Acidosis - due to renal failure and severe dehydration cont IVF resuscitation therapy, repeat bmp in am. / Rhabdomyolysis cont IVF resuscitation therapy, monitor uop q shift, monitor CPK / Colon cancer stage 4 - s/p colostomy Supportive care, pain control, outpatient F/U family wants hospice, CM consulted / Metabolic encephalopathy CT w/o any new findings, cont to provide supportive care /Moderate PCM - nutrition supplements /Hypernatremia - due to dehydration - cont iv fluid /Anemia of CD - cont to monitor CBC /Elevated LFT - due to hepatic metastasis, cont to monitor /Thrombocytopenia, likely from underlying malignancy, cont to monitor / Advance care planning Pt is now DNR. Pt prognosis discussed. Risks and benefits of current care plan discussed. Pt acknowledges understanding and agreement with care plan. requested hospice / DVT prophylaxis SCD to BLE while in bed, supportive care, no prophylactic heparin for low platelet Disposition: home hospice Physical exam: General appearance: Present: mild distress, other (ill-looking) - EENT Eyes: PERRL, EOM intact ENT: hearing intact, clear oral mucosa Ears: bilateral: normal - Neck Neck: supple, normal ROM - Respiratory Respiratory effort: normal Respiratory: bilateral: CTA - Cardiovascular Rhythm: regular Heart Sounds: Present: S1 & S2. Absent: gallop, rub Extremities: pulses intact, No edema, normal color, Full ROM - Gastrointestinal General gastrointestinal: Present: soft, non-tender, non-distended, normal bowel sounds - colostomy bag in place - Integumentary Integumentary: clear, warm, dry - Musculoskeletal Musculoskeletal: 1, strength equal bilaterally - Neurologic Neurologic: moves all extremities - Psychiatric Psychiatric: cooperative, other (does not speak) Disposition: DC-50 TO HOSPICE (HOME) Time spent for discharge: 34 minutes Core Measure Documentation - Palliative Care Palliative Care/ Comfort Measures: Not Applicable - Core Measures Any of the following diagnoses?: none Exam - Constitutional Vitals: Temp Pulse Resp BP Pulse Ox 97.8 F 70 18 126/74 94 08/24/19 07:19 08/24/19 10:00 08/24/19 10:00 08/24/19 09:32 08/24/19 07:40 Plan Activity: other (bedrest) Diet: advance as tolerated Wound: change dressing Follow up with: BRETT SUTTON MD [Primary Care Provider] - 3-5 Days Prescriptions: oxyCODONE /ACETAMINOPHEN [Percocet 5/325] 1 tab PO Q6HR PRN #10 tablet PRN Reason: Pain ALPRAZolam [Xanax TAB] 0.25 mg PO Q8H PRN #10 tablet PRN Reason: Anxiety
[2019-08-24] MEDS ORDERED: CALCIUM GLUCONATE 2,000 MG in SODIUM CHLORIDE 0.9% 100 ML IV ONE (13:30)
[2019-08-24 13:35] VITALS: BP 120/77
--- NOTE | 2019-08-25 07:24 | Vascular Lab Report ---
DUPLEX DOPPLER LOWER EXTREMITY ARTERIAL, BILATERAL INDICATION: LE pain. TECHNIQUE: Arterial duplex examination of both lower extremities performed using B-mode, color flow and spectral Doppler assessment. FINDINGS: RIGHT: Common Femoral Artery: PSV 59 cm/sec. Triphasic waveform. Proximal SFA: PSV 54 cm/sec. Triphasic waveform. Mid SFA: PSV 83 cm/sec. Triphasic waveform. Distal SFA: PSV 53 cm/sec. Triphasic waveform. Popliteal artery: PSV 60 cm/sec. Triphasic waveform. Posterior tibial artery: PSV 16 cm/sec. Monophasic waveform. Dorsalis Pedis Artery: PSV 49 cm/sec. Monophasic waveform. LEFT: Common Femoral Artery: PSV 63 cm/sec. Triphasic waveform. Proximal SFA: PSV 71 cm/sec. Triphasic waveform. Mid SFA: PSV 60 cm/sec. Triphasic waveform. Distal SFA: PSV 57 cm/sec. Triphasic waveform. Popliteal artery: PSV 49 cm/sec. Triphasic waveform. Posterior tibial artery: PSV 72 cm/sec. Monophasic waveform. Dorsalis Pedis Artery: PSV 90 cm/sec. Monophasic waveform. Right MELINDA: Not obtained. Left MELINDA: Not obtained. IMPRESSION: 1. Abnormal monophasic waveforms in the posterior tibial and dorsalis pedis arteries bilaterally, sug gesting upstream stenoses. Otherwise unremarkable exam. Ankle-Brachial Index (MELINDA): * Calcified arteries > 1.4 * Normal = 0.9-1.4 * Mild PAD = 0.7-0.89 * Moderate PAD = 0.51-0.69 * Severe PAD < 0.5 Doppler Waveform: * Triphasic is normal. * Biphasic is abnormal if clear transition from triphasic signal along vascular tree. * Monophasic is abnormal. Signer Name: Kingsley Wolf MD Signed: 08/25/2019 7:19 AM Workstation Name: [id number]
== END 2019-08-24 18:50 | disposition hospice, home (50) | DRG 682 ==
LOC: ED 13:33 → OBSVTOIN 19:02 → 2B-ACE 19:02
PROVIDERS: ADMIT Internal Medicine; ATTEND Internal Medicine
DX: N17.0 Acute kidney failure with tubular necrosis (principal); I21.A1 Myocardial infarction type 2; G93.41 Metabolic encephalopathy; C18.9 Malignant neoplasm of colon, unspecified; E87.2 Acidosis; E44.0 Moderate protein-calorie malnutrition; M62.82 Rhabdomyolysis; E87.0 Hyperosmolality and hypernatremia; I42.9 Cardiomyopathy, unspecified; Z66 Do not resuscitate; N18.9 Chronic kidney disease, unspecified; E87.6 Hypokalemia; E86.0 Dehydration; D63.8 Anemia in other chronic diseases classified elsewhere; D69.6 Thrombocytopenia, unspecified; E11.22 Type 2 diabetes mellitus with diabetic chronic kidney disease; I12.9 Hypertensive chronic kidney disease with stage 1 through stage 4 chronic kidney disease, or unspecified chronic kidney disease; Z95.0 Presence of cardiac pacemaker; Z68.27 Body mass index [BMI] 27.0-27.9, adult; Z82.49 Family history of ischemic heart disease and other diseases of the circulatory system; Z79.82 Long term (current) use of aspirin; Z79.899 Other long term (current) drug therapy
CPT/HCPCS: 36415; 70450; 80048; 80053; 80061; 80076; 81001; 82140; 82550; 82553; 82962; 83735; 84439; 84443; 84484; 85007; 85025; 87086; 93005; 93010; 93925; G0378; J0610; J1644; J1815; J3480; J7030